=== PATIENT | male | born 1945 | race Caucasian/White ===

== ENCOUNTER 2016-11-10 04:34 | Inpatient (IN) | payer OTHER ==
[~2016-11-10] VITALS: Ht 175.3 cm; Wt 86.5 kg
[2016-11-10] VITALS (8 sets, daily range): BP systolic 97–118; BP diastolic 63–87
--- NOTE | ~2016-11-10 | EKG ---
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
--- NOTE | ~2016-11-10 | EKG ---
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
--- NOTE | ~2016-11-10 | 2DMMODE ---
[facility] [address] [email or web address] [address] 2 D/M-MODE ECHOCARDIOGRAM Name: LINDA OCASIO Room #: 213-P [facility] IN .R.#: [id number] Admission: 11/10/16 Attend Phys: Alexander Valdes, Discharge: Date of : 49 Date of Service: 11/10/16 1225 Report #: [id number] THIS REPORT FOR: //name// APPROVED REPORT Study performed: 11/10/2016 09:16:33 EXAM: Comprehensive 2D, Doppler, and color-flow Echocardiogram Patient Location: Bedside Room #: 213 Status: routine BSA: 2.02 BP: 102/77 mmHg Rhythm: Atrial Fibrillation Other Information Study Quality: Good Indications Atrial Fibrillation Chest Pain 2D Dimensions RVDd: 31.70 mm LVEF(%): 64.82 (>50%) IVSd: 11.36 (7-11mm) LVOT Diam: 19.52 (18-24mm) LVDd: 37.57 mm PWd: 12.37 (7-11mm) Ascending Ao: 30.88 (22-36mm) LVDs: 24.49 (25-40mm) Aortic Root: 30.64 mm IVC: 18.00 mm Bentley's LVEF: 64.82 % Volumes Left Atrial Volume (Systole) Single Plane 4CH: 38.52 mL Single Plane 2CH: 57.46 mL LA ESV Index: 26.00 mL/m2 Aortic Valve AoV Peak Elmo.: 1.09 m/s AO Peak Gr.: 4.77 mmHg LVOT Max P.09 mmHg LVOT Max V: 0.88 m/s ANAHI Vmax: 2.41 cm2 Mitral Valve MV Decel. Time: 187.95 ms [facility] [address] [place] [address] 2 D/M-MODE ECHOCARDIOGRAM Name: AMARJITLINDA REYNOLDS Room #: 213-P [facility] IN ..#: [id number] Admission: 11/10/16 Attend Phys: Alexander Valdes, Discharge: Date of : 49 Date of Service: 11/10/16 1225 Report #: [id number] MV E Max Elmo.: 0.96 m/s Pulmonary Valve PV Peak Elmo.: 0.75 m/s PV Peak Gr.: 2.25 mmHg Tricuspid Valve TR Peak Elmo.: 2.08 m/s RAP Estimate: 5.00 mmHg TR Peak Gr.: 17.27 mmHg Left Ventricle The left ventricle is normal size. There is normal LV segmental wall motion. There is normal left ventricular wall thickness. The left ventricular systolic function is normal. The left ventricular ejection fraction is within the normal range. LVEF is 60-65%. This study is not technically sufficient to allow evaluation of the LV diastolic function due to atrial fibrillation. Right Ventricle The right ventricle is normal size. The right ventricular systolic function is normal. Atria The left atrium size is normal. The right atrium size is normal. Aortic Valve The aortic valve is normal in structure. No aortic regurgitation is present. There is no aortic valvular stenosis. Mitral Valve The mitral valve is normal in structure. There is mild mitral valve regurgitation noted. No evidence of mitral valve stenosis. Tricuspid Valve The tricuspid valve is normal in structure. There is trace to mild tricuspid regurgitation. The right atrial pressure is estimated at 5 mmHg. PAP is estimated at 22 mmHg. Pulmonic Valve The pulmonary valve is normal in structure. Trace to mild pulmonic regurgitation. Great Vessels The aortic root is normal in size. IVC is normal in size and collapses >50% with inspiration. [facility] [address] [place] [address] 2 D/M-MODE ECHOCARDIOGRAM Name: LINDA OCASIO Room #: 213-P [facility] IN M.R.#: [id number] Admission: 11/10/16 Attend Phys: Alexander Valdes, Discharge: Date of : 49 Date of Service: 11/10/16 1225 Report #: [id number] Pericardium There is no pericardial effusion. <Conclusion> The left ventricular systolic function is normal. There is normal LV segmental wall motion. LVEF is 60-65%. The aortic valve is normal in structure. No aortic regurgitation or stenosis The mitral valve is normal in structure. There is mild mitral valve regurgitation. Pulmonary artery pressure of 22mmHg There is no pericardial effusion. <ELECTRONICALLY SIGNED> By: Damien Rivas MD, [facility] 11/10/16 1225 1225 1225 Damien Rivas MD, [facility] /INF
[2016-11-10 04:51] LABS: ABSOLUTE NEUTROPHILS 4.8 thou/uL (1.4-8.2); BASOPHILS 0.6 % (0.0-2.0); EOSINOPHILS 1.5 % (0.0-3.0); HEMATOCRIT 43.5 % (42.0-52.0); HEMOGLOBIN 15.2 gm/dL (14.0-18.0); LYMPHOCYTES 29.5 % (24.0-44.0); MCH 32.9 pg (26.0-34.0); MCHC 35.1 g/dL (28.0-37.0); MCV 93.8 fL (80.0-100.0); MONOCYTES 10.5 % (1.0-8.0); PLATELET COUNT 170 thou/uL (150-400); POLYS 57.9 % (36.0-66.0); RBC 4.63 mil/uL (4.50-6.00); RDW 13.4 % (10.5-14.5); WBC 8.4 thou/uL (4.0-11.0)
[2016-11-10 04:55] LABS: MANUAL DIFF NO
[2016-11-10 05:04] LABS: ANION GAP 9 mmol/L (7-16); BUN 13 mg/dL (7-18); CALCIUM 8.8 mg/dL (8.5-10.1); CHLORIDE 107 mmol/L (98-107); CO2 25 mmol/L (21-32); CREATININE 0.9 mg/dL (0.7-1.3); GLUCOSE 115 mg/dL (74-106); POTASSIUM 4.1 mmol/L (3.5-5.1); SODIUM 141 mmol/L (136-145)
[2016-11-10] MEDS ORDERED: LIPITOR10 MG PO (05:08)
[2016-11-10 05:13] LABS: TROPONIN-I < 0.04 ng/mL (<0.04-0.07)
[2016-11-10] MEDS ORDERED: ASPIR 8181 M1 PO (06:35)
[2016-11-10 10:26] LABS: TSH 6.113 uIU/mL (0.358-3.740)
[2016-11-11 03:33] LABS: CHOLESTEROL 135 mg/dL (<200); HDL CHOLESTEROL 67 mg/dL (>40); LDL CHOLESTEROL 44 mg/dL (<100); TRIGLYCERIDE 121 mg/dL (<150); VLDL 24 mg/dL (<40)
[2016-11-11 03:38] LABS: SERUM ASSESSMENT Clear
[2016-11-11 04:45] VITALS: BP 103/68
[2016-11-11 07:35] VITALS: BP 113/73
[2016-11-11 09:44] VITALS: BP 113/73
[2016-11-11 09:53] VITALS: BP 113/73
[2016-11-11] MEDS ORDERED: FLECAINIDE ACET50 M1 PO (09:54)
[2016-11-11] MEDS ORDERED: CARDIZEM CD 18180 M3 PO (09:54)
[2016-11-11] MEDS ORDERED: ELIQUIS5 MG PO (09:54)
== END 2016-11-11 10:53 | disposition home or self-care (01) | DRG 310 ==
LOC: ER 04:34 → EROBS 05:18 → 2N 05:18
PROVIDERS: Emergency Medicine; Nurse Practitioner
DX: I48.91 Unspecified atrial fibrillation (principal); I10 Essential (primary) hypertension; E78.00 Pure hypercholesterolemia, unspecified; E78.5 Hyperlipidemia, unspecified; I25.10 Atherosclerotic heart disease of native coronary artery without angina pectoris; Z87.442 Personal history of urinary calculi; Z79.01 Long term (current) use of anticoagulants; Z79.82 Long term (current) use of aspirin; Z79.899 Other long term (current) drug therapy; Z82.49 Family history of ischemic heart disease and other diseases of the circulatory system; Z80.8 Family history of malignant neoplasm of other organs or systems
CPT/HCPCS: 10081

== ENCOUNTER → 2018-08-01 | Outpatient (CLI) | payer OTHER ==
[~2018-08-01] MED LIST: ASPIR 8181 M1 PO; CARDIZEM CD 18180 M3 PO; ELIQUIS5 MG PO; FLECAINIDE ACET50 M1 PO; LIPITOR10 MG PO
== END ==
LOC: CAT 14:11
DX: Z13.6 Encounter for screening for cardiovascular disorders (principal); E78.00 Pure hypercholesterolemia, unspecified; I25.10 Atherosclerotic heart disease of native coronary artery without angina pectoris

== ENCOUNTER → 2020-07-24 | Outpatient (CLI) | payer OTHER | LOC: SJCVCIMAG 11:39 | PROVIDERS: ATTEND Internal Medicine Cardiovascular Disease | DX: I49.3 Ventricular premature depolarization (principal); I08.1 Rheumatic disorders of both mitral and tricuspid valves; I65.23 Occlusion and stenosis of bilateral carotid arteries; I25.10 Atherosclerotic heart disease of native coronary artery without angina pectoris ==